=== PATIENT | male | born 1960 | race Caucasian/White ===

== ENCOUNTER 2020-01-08 10:47 | Emergency (ER) | payer OTHER, SELFPAY ==
[2020-01-08] VITALS (36 sets, daily range): BP systolic 139–152; BP diastolic 70–84; PULSE 54–76; RESP 13–22; TEMP 37–37.3; O2SAT 94–98
--- NOTE | 2020-01-08 10:45 | RT.EKG_ITS ---
APPROVED REPORT Exam: Resting ECG Patient Location: E HR:80 bpm ECG Measurements Heart Rate 80 AXIS OR 187 P 47 QRSd 95 QRS -7 QT 375 T 11 QTc 432 Conclusion Sinus rhythm...normal P axis, V-rate 80, no stemi
--- NOTE | 2020-01-08 11:08 | ED.GENADUL_ITS ---
Discharge Plan Disposition Patient Disposition: HOME Condition: Improving Discharge Details Chief Complaint: GenMedical Clinical Impression: Gastritis Primary Care Provider: Rodger Abrams ED Provider: Rc Mckee Home Meds and New Rx's Prescriptions: New sucralfate [Carafate] 1 gram tablet 1 gm PO QACHS Qty: 30 RF: 0 Continued lisinopril 40 MG tablet 40 mg PO DAILY RF: 0 metoprolol tartrate 25 MG tablet 100 mg PO DAILY RF: 0 rosuvastatin 10 mg Tablet 20 mg PO DAILY RF: 0 citalopram 20 mg tablet 20 mg PO DAILY RF: 0 amlodipine 5 mg tablet 5 mg PO DAILY RF: 0 lorazepam 0.5 mg tablet 0.5 mg PO DAILY RF: 0 omeprazole 40 mg capsule,delayed release(DR/EC) 40 mg PO DAILY RF: 0 Discharge Instructions Instructions: Gastritis (ED) Additional Instructions: We will ask our care management team to arrange an outpatient follow-up for you in clinic at [facility]. Please begin Carafate with morning and evening meals as prescribed today. Continue your other medications including omeprazole. I recommend you observe a bland diet and avoid fatty, spicy, fried, tomato-based acidic foods. Return to develop a fever, vomiting, or any other acute concerns. Medical Decision Making 59-year-old male presents with 2+ weeks of what he states is nearly constant left upper quadrant and left chest discomfort. Has been associated with belching. Today he was driving, felt nauseated, flushed and sweaty. He states he is also had intermittent episodes of lightheadedness which she was seen in the [facility] 2 weeks ago. Today he also felt lightheaded but did not have syncope. He states he now is 1 out of 10 left upper quadrant discomfort. His vital signs are unremarkable. Records received and reviewed from visit to [facility] December 11. Patient's records from that day note unremarkable chest x-ray. Chemistries unremarkable. Normal CBC. Normal troponin x2. Patient observed over 5 hours time with electronic device monitor and serial troponin x2. He is improved following my administration of a GI cocktail. I do feel this is likely gastritis and will add Carafate to his current regimen. We will ask care management to arrange an outpatient follow-up for him at [facility]. HPI General Mode of arrival: ambulatory . Date/Time Provider Initiated Documentation: 01/08/20 10:49 . Limitations to Documentation: no limitations . Information obtained by: patient . History of Present Illness 59 year old M presents to the emergency department with the chief complaint of Left-sided chest and abdomen pain for 2 weeks , described as moderate, Quality is described as dull and constant, and is localized to the chest, abdomen and left. Patient reports no radiation. Patient started experiencing this day(s) and it has been constant and other (Goes up and down). No relieving factors improve symptom(s), No exacerbating factors reported . Patient notes other (Sweaty and nauseated today. He has had intermittent lightheadedness, no syncop e). Patient did receive the following treatments prior to arrival, none Related Data Home Medications Medication Instructions Recorded Confirmed lisinopril 40 mg PO DAILY 09/14/17 01/08/20 metoprolol tartrate 100 mg PO DAILY 09/14/17 01/08/20 amlodipine 5 mg PO DAILY 01/08/20 01/08/20 citalopram 20 mg PO DAILY 01/08/20 01/08/20 lorazepam 0.5 mg PO DAILY 01/08/20 01/08/20 omeprazole 40 mg PO DAILY 01/08/20 01/08/20 rosuvastatin 20 mg PO DAILY 01/08/20 01/08/20 sucralfate [Carafate] 1 gm PO QACHS #30 tab 01/08/20 Previous Rx's Medication Instructions Recorded sucralfate [Carafate] 1 gm PO QACHS #30 tab 01/08/20 Allergies Allergy/AdvReac Type Severity Reaction Status Date / Time atorvastatin [From Lipitor] AdvReac Mild does Unverified 01/08/20 10:58 strange things to me General Stated Complaint: GenMedical ROMULO: 3 Review of Systems Narrative: 6 systems reviewed and otherwise negative. Lives in [facility], reports recent visit to [place] [facility] for similar. [facility] Social History Do you feel safe in your relationship?: Yes Exam Narrative Exam Narrative: GEN: awake, alert, oriented 3. Pleasant, well groomed, interactive. Obese. HEAD: Normocephalic, atraumatic ENT: Mucous membranes moist, oropharynx unremarkable, External ear exam unremarkable EYES: PERRL, EOMI NECK: Full ROM, no ABBY, no menigismus CHEST/RESP: Nontender, clear to auscultation bilateral, no wheeze/rhonchi/rales CARDIOVASCULAR: RRR, no murmur, rub bimal. 2+ Rad pulse bilateral ABDOMEN: Soft, tender in the left upper quadrant without rebound or guarding, no mass. +Bowel sounds EXT: Full ROM, no edema, no rash Neuro: Grossly normal neurologic exam, conversant, interactive. Psych: Speech fluent, thoughts congruent, affect normal Course Vital Signs Vital signs: Vital Signs Temperature 37.3 C 01/08/20 10:52 Pulse 76 01/08/20 10:52 Respiratory Rate 17 01/08/20 10:52 Blood Pressure 146/84 H 01/08/20 10:52 Pulse Oximetry 95 01/08/20 10:52 Temperature 37.3 C 01/08/20 10:52 Temperature Source Skin 01/08/20 10:52 Pulse 76 01/08/20 10:52 Respiratory Rate 17 01/08/20 10:52 Blood Pressure 146/84 H 01/08/20 10:52 Blood Pressure Position Supine 01/08/20 10:52 Pulse Oximetry 95 01/08/20 10:52 Oxygen Delivery Method Room Air 01/08/20 10:52 Oxygen Flow Rate 0 01/08/20 10:52 Pain Level 1 01/08/20 10:52 Comment using TUMS 01/08/20 10:52
[2020-01-08 11:17] LABS: Abs Immature Grans 0.02 10^3/uL (0.0-0.06); Absolute Basophil Count 0.03 10^3/uL (0.0-0.2); Absolute Eosinophil Count 0.13 10^3/uL (0.0-0.7); Absolute Lymphocyte Count 1.58 10^3/uL (1.2-3.4); Absolute Monocyte Count 0.47 10^3/uL (0.1-0.8); Absolute Neutrophil Count 5.46 10^3/uL (1.2-6.7); Basophils % 0.4; Eosinophils % 1.7; HCT 41.4 % (40.0-50.0); Immature Grans % 0.3; Lymphocytes % 20.5; MCH 31.4 pg (27.0-33.0); MCHC 33.8 % (32.0-36.0); MCV 92.8 fL (80-95); MPV 11.1 fL (8.0-11.0); Monocytes % 6.1; Nucleated RBC 0 %; Platelet Count 169 10^3/uL (130-400); RBC 4.46 10^6/uL (4.36-5.78); RDW 13.2 % (11.8-14.1); RDW-SD 44.8 fL; WBC 7.69 10^3/uL (4.4-10.8)
[2020-01-08] MEDS: Normal Saline 1,000 ML 150 ML IV (11:28)
[2020-01-08 11:40] LABS: ALT 22 U/L (16-63); AST 13 U/L (15-37); Albumin 3.3 g/dL (3.4-5.0); Alkaline Phosphatase 94 U/L (46-116); Anion Gap 7.8 mmol/L (3-11); BUN 19 mg/dL (7-18); Bilirubin, Total 0.6 mg/dL (0.2-1.0); CO2 30.2 mmol/L (21.0-32.0); CREATININE 1.08 mg/dL (0.70-1.30); Calcium 9.2 mg/dL (8.5-10.1); Chloride 103 mmol/L (98-107); Glucose 127 mg/dL (74-106); Lipase 92 U/L (73-393); Sodium 141 mmol/L (136-145); Total Protein 7.7 g/dL (6.4-8.2); Troponin I < 0.05 ng/mL (<0.06)
--- NOTE | 2020-01-08 14:43 | NUR.NOTE ---
pt has ambulated to the bathroom . manuel well
[2020-01-08 15:00] LABS: Troponin I < 0.05 ng/mL (<0.06)
--- NOTE | 2020-01-08 15:21 | NUR.NOTE ---
Nursing Note: Referral sent [facility]. [phone] talk to Unruly on the phone
== END 2020-01-08 15:32 | disposition home or self-care (01) ==
PROVIDERS: Emergency Provider Emergency Medicine; PCP Internal Medicine
DX: K29.00 Acute gastritis without bleeding (principal); R10.12 Left upper quadrant pain; R07.89 Other chest pain; R14.2 Eructation
CPT/HCPCS: 36415; 36416; 80053; 82962; 83690; 93005; 96360; 96361; 99284; 83735; 84484; 85025; 93010

== ENCOUNTER → 2023-09-25 00:46 | Outpatient (CLI) | payer MEDICAID, SELFPAY ==
--- NOTE | 2023-09-25 | DI.NM_ITS ---
APPROVED REPORT Exam: Pharmacologic Patient Location: Out-Patient Room/Bed: Stress Nurse: Jovana Lane, RN, Zoe Michaels RN Ordering Provider:ANTWON STILL, Contact Number: [phone] BMI: 55.58 Baseline Rhythm: Sinus Bradycardia Indications: CAD, WOODY Medical History Medical History: AUTUMN, HLD, HTN, gastritis, atherosclerosis of coronary artery, pulmonary heart diseas e, depression, GERD, heart murmur, orthostatic hyotension, panic, obesity, recent COVID infection Cardiac Medications: ASA, citalopram, lisinopril, metoprolol succinate, omeprazole, rosuvastatin Allergies: atorvastatin Cardiac Risk Factors: family hx, HTN, HLD, CVD, obesity Previous Cardiac Procedures: hx of cardiac cath Pretest Chest Pain Characteristics: none Exercise History: Sedentary Lung Sounds: clear Heart Sounds: regular Stress Test Details Test: Pharmacologic stress testing performed using 0.4 mg of regadenoson per 5 mL given IV over 10 s econds. Nuclear Acquisition: Rest Tc-99m/Stress Tc-99m 1 day Rest Isotope: Tc-99m Sestamibi. Dose: 15.8 Date: 09/25/2023 Injection Time: 0920 Stress Isotope: Tc-99m Sestamibi. Dose: 48.0 Date: 09/25/2023 Injection Time: 1110 HR Resting HR Supine: 48 bpm Max Heart Rate (APMHR): 159.282690 bpm Target HR (85% APMHR): 135.787278 bpm Max HR Achieved: 78 bpm % of APMHR: 49.06 Recovery HR: 67 bpm BP Resting BP Supine: 132/74 mmHg Max BP: 158/66 mmHg Recovery BP: 138/70 mmHg ECG Resting ECG: Sinus Bradycardia Stress ECG: Sinus Rhythm ST Change: Nondiagnostic low heart rate Recovery ECG: Sinus Rhythm Recovery ST Change: Nondiagnostic low heart rate Clinical Stress Symptoms: Dyspnea Rate Pressure Product: [id number] Stress ECG Conclusion 1. Resting electrocardiogram was normal 2. Patient underwent testing using pharmacologic stress with regadenoson 3. Peak heart rate achieved was 49% of maximal predicted for age 4. The electrocardiographic portion of the test was nondiagnostic 5. See MPI report Stress Test Summary STAGE HR BP SpO2 Symptoms NOTES Supine 48 132/74 1 min post Lexiscan injection 76 158/66 mild SOB 3 min post Lexiscan injection 67 152/76 95 SOB resolved 6 min post Lexiscan injection 67 138/70 MPI Conclusion Myocardial perfusion is normal. There is no ischemia or evidence of prior infarction Ejection fraction is 50% with normal wall motion Radiologist Interpretation Radiologist Interpretation by: Jorge Gonzalez MD Interpretation Date/Time: 09/25/2023 16:32:42
[2023-09-25] MEDS: Regadenoson 0.4 MG/5 ML SYR IVP (11:16)
== END ==
PROVIDERS: PCP Internal Medicine; Visit Provider Internal Medicine
DX: R06.09 Other forms of dyspnea (principal); I25.10 Atherosclerotic heart disease of native coronary artery without angina pectoris
CPT/HCPCS: 78452; 93017; J2785